=== PATIENT | female | born 1970 | race Caucasian/White ===

== ENCOUNTER 2018-06-19 18:18 | Emergency (ER) | payer SELFPAY ==
--- NOTE | 2018-06-19 19:05 | RAD ---
XR Shoulder Lt 3 View STANDARD History: [Pain] Comparison: None. Findings: No acute fracture or malalignment. Os acromiale is present. Ribs are unremarkable. Impression: Os acromiale he can be a source of patient's pain. No acute fracture or malalignment.
[2018-06-19] MEDS ORDERED: methylPREDNISolone Sod Succ/PF 125 MG/2 ML VIAL ONE (19:21)
[2018-06-19] MEDS ORDERED: Ketorolac Tromethamine 30 MG/ML VIAL ONE (19:21)
== END 2018-06-19 20:05 | disposition home or self-care (01) ==
LOC: NAV ERS 18:18
DX: M54.12 Radiculopathy, cervical region (principal); J45.909 Unspecified asthma, uncomplicated; F17.210 Nicotine dependence, cigarettes, uncomplicated
CPT/HCPCS: 93005; 96374; 96375; J1885; J2930